=== PATIENT | female | born 1990 | race Hispanic/Latino ===

== ENCOUNTER 2016-12-25 23:52 | Emergency (ER) | payer SELFPAY ==
[2016-12-26 00:10] VITALS: BP 142/72; PULSE 100; RESP 20; TEMP 98; O2SAT 99
--- NOTE | 2016-12-26 00:18 | ED PDOC ---
HPI: Psych/Substance Abuse Time Seen by Provider: 12/26/16 00:07 Chief Complaint (Nursing): Alcohol Ingestion Chief Complaint (Provider): Alcohol abuse History Per: Patient History/Exam Limitations: no limitations Onset/Duration Of Symptoms: Days Current Symptoms Are (Timing): Still Present Additional Complaint(s): Pt state she tripped and fell. Pt states she is not sure why EMS arrived. Pt states she does not want to be seen and has called her brother. Pt denies LOC. Pt has history of seizure disorder and states she has been taking her medications regularly. Past Medical History Reviewed: Historical Data, Nursing Documentation, Vital Signs Vital Signs: Last Vital Signs Temp 98 F 12/26/16 00:07 Pulse 100 H 12/26/16 00:07 Resp 20 12/26/16 00:07 BP 142/72 12/26/16 00:07 Pulse Ox 99 12/26/16 00:07 - Medical History PMH: Seizures - Surgical History Surgical History: No Surg Hx - Family History Family History: States: Unknown Family Hx - Living Arrangements Living Arrangements: With Family - Social History Current smoker - smoking cessation education provided: No Alcohol: None Drugs: Denies - Allergies Allergies/Adverse Reactions: Allergies Allergy/AdvReac Type Severity Reaction Status Date / Time No Known Allergies Allergy Verified 12/26/16 00:07 Review of Systems ROS Statement: Except As Marked, All Systems Reviewed And Found Negative Skin: Positive for: Other Physical Exam - Reviewed Nursing Documentation Reviewed: Yes Vital Signs Reviewed: Yes - Physical Exam Appears: Positive for: Well, Non-toxic, No Acute Distress Head Exam: Positive for: ATRAUMATIC, NORMAL INSPECTION, NORMOCEPHALIC Skin: Positive for: Warm. Negative for: Normal Color (Mild swelling right upper lip) Eye Exam: Positive for: Normal appearance, EOMI, PERRL ENT: Positive for: Normal ENT Inspection Neck: Positive for: Normal, Painless ROM Cardiovascular/Chest: Positive for: Regular Rate, Rhythm Respiratory: Positive for: Normal Breath Sounds. Negative for: Accessory Muscle Use, Respiratory Distress Gastrointestinal/Abdominal: Positive for: Normal Exam, Bowel Sounds, Soft Back: Positive for: Normal Inspection Extremity: Positive for: Normal ROM Neurologic/Psych: Positive for: Alert, diabetes clinical manager II-XII, Oriented, Mood/Affect. Negative for: Motor/Sensory Deficits, Aphasia, Facial Droop - ECG O2 Sat by Pulse Oximetry: 99 Pulse Ox Interpretation: Normal Medical Decision Making Medical Decision Making: Pt picked by her brother and he states "I just want to take her home". Disposition - Clinical Impression Clinical Impression: Alcohol abuse - Patient ED Disposition Is Patient to be Admitted: No - Disposition Disposition: Routine/Home Disposition Time: 00:11 Condition: GOOD Instructions: Abuse of Alcohol (ED)
== END 2016-12-26 00:19 | disposition home or self-care (01) ==
LOC: H.ER 23:52
DX: F10.10 Alcohol abuse, uncomplicated (principal)